=== PATIENT | male | born 1990 | race Caucasian/White ===

== ENCOUNTER 2019-08-19 19:40 | Emergency (ER) | payer OTHER ==
[~2019-08-19] VITALS: Ht 185.4 cm; Wt 75.0 kg
[2019-08-19 20:02] VITALS: TEMP 98.9
[2019-08-19] MEDS ORDERED: PREDNISONE20 MG PO (21:55)
[2019-08-19 22:30] VITALS: BP 117/74; PULSE 73
== END 2019-08-19 22:39 | disposition home or self-care (01) ==
LOC: COL.ER 19:40
DX: T78.1XXA Other adverse food reactions, not elsewhere classified, initial encounter (principal); L50.0 Allergic urticaria
CPT/HCPCS: J1200; J2405; J2930; J7030